=== PATIENT | male | born 2000 | race Hispanic/Latino ===

== ENCOUNTER 2023-07-27 06:21 | Day surgery (SDC) | payer OTHER ==
[~2023-07-27] VITALS: Ht 180.3 cm; Wt 104.9 kg
[~2023-07-27 06:21] MED LIST: TRANEXAMIC ACID INJection 1,000 MG in NS 100 ML IV ONE; ceFAZolin SOD 2 GM in IV 1 EA IV ONE
[2023-07-27] MEDS ORDERED: KETOROLAC 60MG 2ML VIAL As Ordered ONE (07:16)
[2023-07-27] MEDS ORDERED: ONDANSETRON 4MG 2ML VIAL As Ordered ONE (07:16)
[2023-07-27] MEDS ORDERED: ROCURONIUM BROMIDE 50MG/5ML VIAL As Ordered ONE (07:16)
[2023-07-27] MEDS ORDERED: ACETAMINOPHEN 1000MG 100ML IV BAG As Ordered ONE (07:16)
[2023-07-27] MEDS ORDERED: propofoL 200 MG/20 ML VIAL As Ordered ONE (07:16)
[2023-07-27] MEDS ORDERED: fentaNYL 100 MCG/2 ML INJECTION As Ordered ONE (07:18)
[2023-07-27] MEDS ORDERED: MIDAZOLAM INJ 2MG/2ML VIAL As Ordered ONE (07:19)
[2023-07-27] MEDS ORDERED: LR 1,000 ML IV SCH ×2 (07:20→10:05)
[2023-07-27] MEDS ORDERED: TRANEXAMIC ACID 100 MG/ML 10ML VIAL As Ordered ONE (07:21)
[2023-07-27] MEDS ORDERED: LIDOCAINE 2% 100MG/5ML SDV (FOR ANES.) As Ordered ONE (07:25)
[2023-07-27] MEDS ORDERED: LIDOCAINE 1% SDV 5ML VIAL PN ONE (07:45)
[2023-07-27] MEDS ORDERED: dexAMETHasone 10MG/1ML VIAL PRES.FREE PN ONE (07:45)
[2023-07-27] MEDS ORDERED: ROPIvacaine 0.5% 30ML VIAL PN ONE (07:45)
[2023-07-27] MEDS ORDERED: fentaNYL 100 MCG/2 ML INJECTION IV PRN ×2 (07:45→10:05)
[2023-07-27] MEDS: MIDAZOLAM INJ 2MG/2ML VIAL IV PRN ×2 (07:45→07:46)
[2023-07-27] MEDS ORDERED: dexmedeTOMIDine (4MCG/ML)200MCG/50ML BTL (PRECEDEX) As Ordered ONE (09:36)
[2023-07-27] MEDS ORDERED: MEPERIDINE 25 MG/ML 1ML VIAL IV PRN (10:05)
[2023-07-27] MEDS ORDERED: HYDROMORPHONE HCL 0.5 MG/ 0.5 ML SYRINGE IV PRN (10:05)
[2023-07-27] MEDS ORDERED: oxyCODONE 5MG TAB PO PRN (10:05)
[2023-07-27] MEDS ORDERED: ONDANSETRON 4MG 2ML VIAL IV PRN (10:05)
[2023-07-27 11:14] VITALS: BP 129/67; TEMP 97.2; O2SAT 98
== END 2023-07-27 11:30 | disposition home or self-care (01) ==
LOC: M SDC 06:21
PROVIDERS: ATTEND Orthopaedic Surgery
DX: M25.371 Other instability, right ankle (principal); F17.200 Nicotine dependence, unspecified, uncomplicated
CPT/HCPCS: 27698; 76000; C1713; J0131; J0690; J1100; J1885; J2250; J2405; J3010